=== PATIENT | female | born 1935 | race Caucasian/White ===

== ENCOUNTER 2023-07-05 20:24 | Inpatient (IN) | payer MEDICARE, MEDICAID ==
[~2023-07-05] VITALS: Ht 165.1 cm; Wt 57.8 kg
[2023-07-05] MEDS: morphine 4 MG/ML inj SYRINge IV ONE (22:26)
[2023-07-05] MEDS ORDERED: IPRA3AMP31 NEB (23:28)
[2023-07-05] MEDS ORDERED: LISI20TA28 PO (23:31)
[2023-07-05] MEDS ORDERED: TRAZ-256 PO (23:32)
[2023-07-05] MEDS ORDERED: BUDE10.2 INH (23:36)
[2023-07-05] MEDS ORDERED: FENT-90 TD (23:38)
[2023-07-05] MEDS ORDERED: FLUT1AER INH (23:40)
[2023-07-05] MEDS ORDERED: SYN0.088T PO (23:42)
[2023-07-05] MEDS ORDERED: magnesium Cl slow-release 64mg tablet PO PRN (23:45)
[2023-07-05] MEDS ORDERED: MIRA25TA PO (23:45)
[2023-07-05] MEDS ORDERED: acetaminophen 325mg tablet PO PRN (23:45)
[2023-07-05] MEDS ORDERED: magnesium 2GM in 50ml NS 50 ML IV PRN (23:45)
[2023-07-05] MEDS ORDERED: magnesium 4gm in 100ml NS 100 ML IV PRN (23:45)
[2023-07-05] MEDS ORDERED: potassium Cl 20 mEq SR tablet PO PRN ×2 (23:45)
[2023-07-05] MEDS ORDERED: HYDROcodone/acetaminophen 5mg/325mg tablet PO PRN (23:45)
[2023-07-05] MEDS: normal saline 1000ml 1,000 ML IV SCH (23:45)
[2023-07-05] MEDS ORDERED: morphine 2 MG/ML inj. syringe IV PRN (23:45)
[2023-07-05] MEDS ORDERED: OMEP40CA21 PO (23:46)
[2023-07-05] MEDS ORDERED: TIOT18CA3 INH (23:47)
[2023-07-06] MEDS: enoxaparin 40mg/0.4ml syringe SUBCUT SCH (00:55)
[2023-07-06 01:21] LABS: HEMOGLOBIN 10.7 g/dl (12.0-16.0); WHITE BLOOD COUNT 10.5 X10'3 (4.5-11.0)
[2023-07-06 01:23] LABS: BASOPHILS % (AUTO) 0.2 % (0-1); EOSINOPHILS % (AUTO) 0.1 % (0-6); HEMATOCRIT 31.9 % (35.0-45.0); LYMPHOCYTES # (AUTO) 1.5 X10'3 (1.1-4.8); LYMPHOCYTES % (AUTO) 14.1 % (21-51); MEAN CORPUSCULAR HEMOGLOBIN 31.2 PG (27.0-31.0); MEAN CORPUSCULAR HGB CONC 33.5 g/dL (33.0-36.5); MEAN CORPUSCULAR VOLUME 93.2 FL (78-98); MEAN PLATELET VOLUME 7.7 FL (7.4-10.4); MONOCYTES % (AUTO) 9.3 % (2-12); NEUTROPHILS % (AUTO) 76.3 % (42-75); PLATELET COUNT 336 X10'3 (140-440); RED BLOOD COUNT 3.42 X10'6 (4.20-5.60); RED CELL DISTRIBUTION WIDTH 16.1 % (11.5-14.5)
[2023-07-06 01:32] LABS: ALBUMIN 2.1 G/DL (3.4-5.0); ALBUMIN/GLOBULIN RATIO 0.5 (1.1-1.5); ALKALINE PHOSPHATASE 83 IU/L (46-116); ANION GAP 6 (8-16); ASPARTATE AMINO TRANSFERASE 15 U/L (10-37); BILIRUBIN,TOTAL 0.4 MG/DL (0.1-1.0); BLOOD UREA NITROGEN 10 MG/DL (7-18); BUN/CREATININE RATIO 23.8 (10.0-20.0); CALCIUM 7.5 MG/DL (8.5-10.1); CHLORIDE 100 MMOL/L (99-107); CREATININE 0.42 MG/DL (0.40-0.90); GLUCOSE 139 MG/DL (70-104); SODIUM 136 MMOL/L (135-145); TOTAL CARBON DIOXIDE 29.8 MMOL/L (24-32); TOTAL PROTEIN 6.1 G/DL (6.4-8.2); eCRCL 83 ML/MIN; eGFR > 90 ML/MIN
[2023-07-06] MEDS: morphine 2 MG/ML inj. syringe IV PRN (01:50)
[2023-07-06 01:51] LABS: ALANINE AMINOTRANSFERASE < 6 U/L (12-78)
[2023-07-06 01:52] LABS: POTASSIUM 2.4 MMOL/L (3.5-5.1)
[2023-07-06] MEDS: potassium Cl 40MEQ/1/2NS 520ml 520 ML IV PRN (02:25)
[2023-07-06] MEDS: ondansetron/PF 4mg/2ml inj IV PRN (02:26)
[2023-07-06 07:30] VITALS: BP 149/59; PULSE 89; RESP 16; TEMP 98.1; O2SAT 98
[2023-07-06 07:46] LABS: BASOPHILS % (AUTO) 0.2 % (0-1); EOSINOPHILS % (AUTO) 0.4 % (0-6); HEMATOCRIT 32.7 % (35.0-45.0); HEMOGLOBIN 10.9 g/dl (12.0-16.0); MEAN CORPUSCULAR HEMOGLOBIN 31.4 PG (27.0-31.0); MEAN CORPUSCULAR HGB CONC 33.2 g/dL (33.0-36.5); MEAN CORPUSCULAR VOLUME 94.4 FL (78-98); MEAN PLATELET VOLUME 7.9 FL (7.4-10.4); MONOCYTES # (AUTO) 0.9 X10'3 (0-0.9); MONOCYTES % (AUTO) 9.3 % (2-12); NEUTROPHILS # (AUTO) 6.6 X10'3 (1.8-7.7); NEUTROPHILS % (AUTO) 69.1 % (42-75); PLATELET COUNT 342 X10'3 (140-440); RED BLOOD COUNT 3.46 X10'6 (4.20-5.60); RED CELL DISTRIBUTION WIDTH 16.9 % (11.5-14.5); WHITE BLOOD COUNT 9.5 X10'3 (4.5-11.0)
[2023-07-06] MEDS: acetaminophen 325mg tablet PO PRN (08:14)
[2023-07-06 08:18] LABS: ALANINE AMINOTRANSFERASE 10 U/L (12-78); ALBUMIN 2.1 G/DL (3.4-5.0); ALBUMIN/GLOBULIN RATIO 0.6 (1.1-1.5); ALKALINE PHOSPHATASE 84 IU/L (46-116); ANION GAP 9 (8-16); ASPARTATE AMINO TRANSFERASE 11 U/L (10-37); BILIRUBIN,TOTAL 0.4 MG/DL (0.1-1.0); BLOOD UREA NITROGEN 10 MG/DL (7-18); BUN/CREATININE RATIO 18.5 (10.0-20.0); CALCIUM 7.6 MG/DL (8.5-10.1); CHLORIDE 102 MMOL/L (99-107); CREATININE 0.54 MG/DL (0.40-0.90); GLUCOSE 79 MG/DL (70-104); POTASSIUM 3.6 MMOL/L (3.5-5.1); SODIUM 139 MMOL/L (135-145); TOTAL CARBON DIOXIDE 27.8 MMOL/L (24-32); TOTAL PROTEIN 5.9 G/DL (6.4-8.2); eCRCL 65 ML/MIN; eGFR > 90 ML/MIN
[2023-07-06 10:00] VITALS: BP 149/64; PULSE 87; RESP 16; TEMP 97.6; O2SAT 98
[2023-07-06] MEDS: HYDROcodone/acetaminophen 10/325mg tab PO PRN (17:50)
[2023-07-06 19:00] VITALS: BP 159/68; PULSE 87; RESP 14; RESP 18; TEMP 97.3; O2SAT 99
[2023-07-06 22:00] VITALS: BP 147/66; PULSE 85; RESP 16; TEMP 97.7; O2SAT 98
[2023-07-07 06:11] LABS: BASOPHILS % (AUTO) 0.4 % (0-1); EOSINOPHILS # (AUTO) 0.1 X10'3 (0-0.9); EOSINOPHILS % (AUTO) 1.1 % (0-6); LYMPHOCYTES # (AUTO) 1.8 X10'3 (1.1-4.8); LYMPHOCYTES % (AUTO) 29.5 % (21-51); MEAN CORPUSCULAR HEMOGLOBIN 31.6 PG (27.0-31.0); MEAN CORPUSCULAR HGB CONC 33.4 g/dL (33.0-36.5); MEAN CORPUSCULAR VOLUME 94.7 FL (78-98); MEAN PLATELET VOLUME 8.1 FL (7.4-10.4); MONOCYTES # (AUTO) 0.6 X10'3 (0-0.9); MONOCYTES % (AUTO) 10.4 % (2-12); NEUTROPHILS # (AUTO) 3.7 X10'3 (1.8-7.7); NEUTROPHILS % (AUTO) 58.6 % (42-75); PLATELET COUNT 291 X10'3 (140-440); RED BLOOD COUNT 3.17 X10'6 (4.20-5.60); RED CELL DISTRIBUTION WIDTH 16.7 % (11.5-14.5); WHITE BLOOD COUNT 6.3 X10'3 (4.5-11.0)
[2023-07-07 06:23] LABS: ALBUMIN 1.7 G/DL (3.4-5.0); ALBUMIN/GLOBULIN RATIO 0.5 (1.1-1.5); ALKALINE PHOSPHATASE 72 IU/L (46-116); ANION GAP 9 (8-16); ASPARTATE AMINO TRANSFERASE 11 U/L (10-37); BILIRUBIN,TOTAL 0.4 MG/DL (0.1-1.0); BLOOD UREA NITROGEN 10 MG/DL (7-18); BUN/CREATININE RATIO 23.8 (10.0-20.0); CALCIUM 7.3 MG/DL (8.5-10.1); CHLORIDE 105 MMOL/L (99-107); CREATININE 0.42 MG/DL (0.40-0.90); GLUCOSE 54 MG/DL (70-104); POTASSIUM 3.3 MMOL/L (3.5-5.1); SODIUM 138 MMOL/L (135-145); TOTAL CARBON DIOXIDE 24.5 MMOL/L (24-32); TOTAL PROTEIN 5.2 G/DL (6.4-8.2); eCRCL 83 ML/MIN; eGFR > 90 ML/MIN
[2023-07-07 06:27] LABS: ALANINE AMINOTRANSFERASE < 6 U/L (12-78)
[2023-07-07 06:58] VITALS: BP 153/57; PULSE 78; RESP 16; TEMP 97.8; O2SAT 99
[2023-07-07 08:35] VITALS: RESP 16; O2SAT 97
[2023-07-07 10:41] VITALS: BP 148/57; PULSE 76; RESP 15; TEMP 98; O2SAT 97
[2023-07-07 18:00] VITALS: BP 145/49; PULSE 88; RESP 16; TEMP 97.6; O2SAT 96
[2023-07-07 20:00] VITALS: RESP 18; O2SAT 92
[2023-07-07 22:00] VITALS: BP 153/53; PULSE 81; RESP 16; TEMP 98; O2SAT 99
[2023-07-08] VITALS (9 sets, daily range): BP systolic 126–161; BP diastolic 61–70; PULSE 60–86; RESP 15–20; TEMP 97.3–98.1; O2SAT 92–96
[2023-07-08 07:55] LABS: BASOPHILS % (AUTO) 0.2 % (0-1); EOSINOPHILS # (AUTO) 0.1 X10'3 (0-0.9); EOSINOPHILS % (AUTO) 0.6 % (0-6); HEMATOCRIT 33.9 % (35.0-45.0); HEMOGLOBIN 10.8 g/dl (12.0-16.0); LYMPHOCYTES # (AUTO) 2.7 X10'3 (1.1-4.8); LYMPHOCYTES % (AUTO) 31.4 % (21-51); MEAN CORPUSCULAR HGB CONC 31.9 g/dL (33.0-36.5); MEAN CORPUSCULAR VOLUME 97.1 FL (78-98); MEAN PLATELET VOLUME 8.3 FL (7.4-10.4); MONOCYTES # (AUTO) 0.7 X10'3 (0-0.9); MONOCYTES % (AUTO) 8.4 % (2-12); NEUTROPHILS # (AUTO) 5.1 X10'3 (1.8-7.7); NEUTROPHILS % (AUTO) 59.4 % (42-75); PLATELET COUNT 396 X10'3 (140-440); RED BLOOD COUNT 3.49 X10'6 (4.20-5.60); WHITE BLOOD COUNT 8.6 X10'3 (4.5-11.0)
[2023-07-08 10:56] LABS: ALBUMIN 1.9 G/DL (3.4-5.0); ALBUMIN/GLOBULIN RATIO 0.5 (1.1-1.5); ALKALINE PHOSPHATASE 86 IU/L (46-116); ANION GAP 13 (8-16); ASPARTATE AMINO TRANSFERASE 14 U/L (10-37); BILIRUBIN,TOTAL 0.5 MG/DL (0.1-1.0); BLOOD UREA NITROGEN 8 MG/DL (7-18); CALCIUM 7.5 MG/DL (8.5-10.1); CHLORIDE 101 MMOL/L (99-107); POTASSIUM 3.9 MMOL/L (3.5-5.1); SODIUM 133 MMOL/L (135-145); TOTAL CARBON DIOXIDE 19.1 MMOL/L (24-32); eCRCL 70 ML/MIN; eGFR > 90 ML/MIN
[2023-07-08 11:00] LABS: ALANINE AMINOTRANSFERASE < 6 U/L (12-78)
[2023-07-08 11:02] LABS: GLUCOSE 30 MG/DL (70-104)
[2023-07-08] MEDS: dextrose 50%-water 50ml dispensing syringe IV ONE (11:13)
[2023-07-08] MEDS: potassium Cl 20mEq in D5-NS 1,000 ML IV SCH (11:25)
[2023-07-08] MEDS ORDERED: DEXTROSE 15 GM of carb/4 tabs (each vial/BOTTLE has 4 tablets) PO PRN (13:00)
[2023-07-08] MEDS ORDERED: fentaNYL 25MCG/hour patch.TD72 TD PRN (13:05)
[2023-07-08] MEDS: traZODone 50mg tablet PO SCH (19:46)
[2023-07-08] MEDS: budesonide 0.5mg/2ml UD nebule IH SCH (20:01)
[2023-07-09] VITALS (9 sets, daily range): BP systolic 113–144; BP diastolic 58–65; PULSE 79–91; RESP 16–24; TEMP 98.1–98.5; O2SAT 95–97
[2023-07-09] MEDS: ipratropium/albuterol 3ml nebule NEB SCH (03:24)
[2023-07-09 07:11] LABS: BASOPHILS % (AUTO) 0.2 % (0-1); EOSINOPHILS # (AUTO) 0.1 X10'3 (0-0.9); EOSINOPHILS % (AUTO) 0.6 % (0-6); HEMATOCRIT 31.1 % (35.0-45.0); HEMOGLOBIN 10.2 g/dl (12.0-16.0); LYMPHOCYTES # (AUTO) 2.2 X10'3 (1.1-4.8); LYMPHOCYTES % (AUTO) 26.9 % (21-51); MEAN CORPUSCULAR HEMOGLOBIN 31.4 PG (27.0-31.0); MEAN CORPUSCULAR HGB CONC 32.7 g/dL (33.0-36.5); MEAN CORPUSCULAR VOLUME 96.3 FL (78-98); MEAN PLATELET VOLUME 7.6 FL (7.4-10.4); MONOCYTES # (AUTO) 0.9 X10'3 (0-0.9); MONOCYTES % (AUTO) 11.2 % (2-12); NEUTROPHILS # (AUTO) 5.1 X10'3 (1.8-7.7); NEUTROPHILS % (AUTO) 61.1 % (42-75); PLATELET COUNT 299 X10'3 (140-440); RED BLOOD COUNT 3.23 X10'6 (4.20-5.60); RED CELL DISTRIBUTION WIDTH 17.2 % (11.5-14.5); WHITE BLOOD COUNT 8.3 X10'3 (4.5-11.0)
[2023-07-09 07:33] LABS: ALANINE AMINOTRANSFERASE 7 U/L (12-78); ALBUMIN 1.7 G/DL (3.4-5.0); ALBUMIN/GLOBULIN RATIO 0.4 (1.1-1.5); ALKALINE PHOSPHATASE 74 IU/L (46-116); ANION GAP 8 (8-16); ASPARTATE AMINO TRANSFERASE 13 U/L (10-37); BILIRUBIN,TOTAL 0.4 MG/DL (0.1-1.0); BLOOD UREA NITROGEN 6 MG/DL (7-18); CALCIUM 7.5 MG/DL (8.5-10.1); CHLORIDE 104 MMOL/L (99-107); CREATININE 0.46 MG/DL (0.40-0.90); GLUCOSE 92 MG/DL (70-104); POTASSIUM 3.5 MMOL/L (3.5-5.1); SODIUM 135 MMOL/L (135-145); TOTAL CARBON DIOXIDE 22.6 MMOL/L (24-32); TOTAL PROTEIN 5.8 G/DL (6.4-8.2); eCRCL 76 ML/MIN; eGFR > 90 ML/MIN
[2023-07-09] MEDS: lisinopril 10 MG tablet PO SCH (08:37)
[2023-07-09] MEDS: mirabegron 25mg ER tablet PO SCH (08:37)
[2023-07-09] MEDS: levoTHYROXINE 25mcg tablet PO SCH (08:37)
[2023-07-09] MEDS: pantoprazole 40mg Tablet.DR PO SCH (08:42)
[2023-07-10 06:00] VITALS: BP 143/51; PULSE 85; RESP 18; TEMP 98.1; O2SAT 92
[2023-07-10 07:29] LABS: BASOPHILS % (AUTO) 0.5 % (0-1); EOSINOPHILS # (AUTO) 0.1 X10'3 (0-0.9); EOSINOPHILS % (AUTO) 0.9 % (0-6); HEMATOCRIT 30.1 % (35.0-45.0); HEMOGLOBIN 9.9 g/dl (12.0-16.0); LYMPHOCYTES # (AUTO) 1.7 X10'3 (1.1-4.8); LYMPHOCYTES % (AUTO) 27.9 % (21-51); MEAN CORPUSCULAR HEMOGLOBIN 31.8 PG (27.0-31.0); MEAN CORPUSCULAR VOLUME 96.5 FL (78-98); MEAN PLATELET VOLUME 7.7 FL (7.4-10.4); MONOCYTES # (AUTO) 0.5 X10'3 (0-0.9); NEUTROPHILS # (AUTO) 3.7 X10'3 (1.8-7.7); NEUTROPHILS % (AUTO) 61.7 % (42-75); PLATELET COUNT 254 X10'3 (140-440); RED BLOOD COUNT 3.12 X10'6 (4.20-5.60); RED CELL DISTRIBUTION WIDTH 17.3 % (11.5-14.5)
[2023-07-10 08:02] LABS: ALBUMIN 1.6 G/DL (3.4-5.0); ALBUMIN/GLOBULIN RATIO 0.5 (1.1-1.5); ALKALINE PHOSPHATASE 66 IU/L (46-116); ANION GAP 9 (8-16); ASPARTATE AMINO TRANSFERASE 12 U/L (10-37); BILIRUBIN,TOTAL 0.3 MG/DL (0.1-1.0); BLOOD UREA NITROGEN 5 MG/DL (7-18); BUN/CREATININE RATIO 10.2 (10.0-20.0); CALCIUM 7.2 MG/DL (8.5-10.1); CHLORIDE 106 MMOL/L (99-107); CREATININE 0.49 MG/DL (0.40-0.90); GLUCOSE 101 MG/DL (70-104); POTASSIUM 3.4 MMOL/L (3.5-5.1); SODIUM 137 MMOL/L (135-145); eCRCL 71 ML/MIN; eGFR > 90 ML/MIN
[2023-07-10 08:14] LABS: ALANINE AMINOTRANSFERASE < 6 U/L (12-78)
[2023-07-10 08:30] VITALS: RESP 18; O2SAT 92
[2023-07-10 09:26] LABS: GIANT PLATELET FEW; LARGE PLATELETS FEW; PLATELET ESTIMATE NORMAL; SMUDGE CELLS 1+; TOTAL CELLS COUNTED 100
[2023-07-10 09:27] LABS: ANISOCYTOSIS 1+; BURR CELLS FEW; ELLIPTOCYTES 1+
[2023-07-10 09:58] VITALS: BP_SYST 90; PULSE 158
== END 2023-07-10 12:00 | DRG 390 ==
LOC: ER 20:25 → ED HOLD 23:47 → ORTHO 4S 07-06 07:15
PROVIDERS: ADMIT Internal Medicine; ATTEND Family Medicine
DX: K56.600 Partial intestinal obstruction, unspecified as to cause (principal); E87.6 Hypokalemia; L89.151 Pressure ulcer of sacral region, stage 1; D64.9 Anemia, unspecified; E16.2 Hypoglycemia, unspecified; E03.9 Hypothyroidism, unspecified; F41.9 Anxiety disorder, unspecified; F32.A Depression, unspecified; E78.00 Pure hypercholesterolemia, unspecified; I10 Essential (primary) hypertension; G89.4 Chronic pain syndrome; J43.9 Emphysema, unspecified; Z95.0 Presence of cardiac pacemaker; Z85.038 Personal history of other malignant neoplasm of large intestine; Z90.710 Acquired absence of both cervix and uterus; Z90.49 Acquired absence of other specified parts of digestive tract; Z79.899 Other long term (current) drug therapy
CPT/HCPCS: 36415; 70450; 71045; 80048; 80053; 80305; 80320; 81001; 82948; 83605; 83690; 83735; 83880; 84145; 84484; 85007; 85025; 87040; 87081; 87088; 93005; 94640; 94760; 96374; 97161; 97530; 99285; A5200; A6209; A6212; A6213; A6449; G0378; J1650; J2270; J2405; J3480; J3490; J7030

== ENCOUNTER 2023-07-10 14:44 | Emergency (ER) | payer MEDICARE, MEDICAID ==
[~2023-07-10] VITALS: Ht 165.1 cm; Wt 54.5 kg
[~2023-07-10 14:44] MED LIST: BUDE10.2 INH; FENT-90 TD; FLUT1AER INH; IPRA3AMP31 NEB; LISI20TA28 PO; MIRA25TA PO; OMEP40CA21 PO; SYN0.088T PO; TIOT18CA3 INH; TRAZ-256 PO
[2023-07-10 14:54] VITALS: TEMP 96.8
[2023-07-10 15:42] VITALS: BP 146/111
[2023-07-10] MEDS ORDERED: diltiazem 5mg/ml 5ml inj. IV ONE (15:50)
[2023-07-10] MEDS ORDERED: ondansetron/PF 4mg/2ml inj IM ONE (15:50)
[2023-07-10 17:21] LABS: BILIRUBIN,URINE NEGATIVE (Neg); CLARITY,URINE SLIGHTLY CLOUDY (Clear); COLOR,URINE YELLOW (Yellow); GLUCOSE, URINE NEGATIVE (Neg); KETONES,URINE NEGATIVE (Neg); LEUKOCYTE ESTERASE ,URINE SMALL (Neg); NITRITES, URINE POSITIVE (Neg); OCCULT BLOOD,URINE TRACE-INTACT (Neg); PROTEIN,URINE NEGATIVE (Neg); UROBILINOGEN,URINE 0.2 E.U/dL (0.2-1.0)
[2023-07-10 17:30] LABS: UA COLLECTION TYPE NON-SPECIFIED
[2023-07-10 17:38] LABS: URINE AMPHETAMINE SCREEN NEGATIVE (Neg); URINE BARBITUATE SCREEN NEGATIVE (Neg); URINE BENZODIAZEPINES SCREEN NEGATIVE (Neg); URINE CANNABINOID SCREEN NEGATIVE (Neg); URINE COCAINE SCREEN NEGATIVE (Neg); URINE METHADONE SCREEN NEGATIVE (Neg); URINE OPIATE SCREEN POSITIVE (Neg); URINE PHENCYCLIDINE SCREEN NEGATIVE (Neg)
[2023-07-10 17:39] LABS: RBC,URINE 0-2 /HPF (0-2); WBC,URINE 20-30 /HPF (0-4)
[2023-07-10 17:39] LABS: ANION GAP 11 (8-16); BLOOD UREA NITROGEN 6 MG/DL (7-18); BUN/CREATININE RATIO 7.1 (10.0-20.0); CALCIUM 7.7 MG/DL (8.5-10.1); CHLORIDE 102 MMOL/L (99-107); CREATININE 0.85 MG/DL (0.40-0.90); ETHANOL < 10 MG/DL (<10); GLUCOSE 142 MG/DL (70-104); LIPASE 14 U/L (16-77); MAGNESIUM 1.1 MG/DL (1.5-2.4); POTASSIUM 3.5 MMOL/L (3.5-5.1); PRO BRAIN NATRIURETIC PEPTIDE 7017 PG/ML (0-450); SODIUM 133 MMOL/L (135-145); eCRCL 39 ML/MIN; eGFR 63 ML/MIN
[2023-07-10 17:40] LABS: BACTERIA,URINE 1+ /HPF (Neg); SQUAMOUS EPITHELIAL CELL,UR FEW /LPF (FEW)
[2023-07-10 17:41] LABS: CELLULAR CAST 0-4 /LPF (NEGATIVE)
[2023-07-10 18:09] VITALS: PULSE 82; RESP 18; O2SAT 98
== END 2023-07-10 19:20 | disposition home or self-care (01) ==
LOC: ER 14:44
DX: T65.91XA Toxic effect of unspecified substance, accidental (unintentional), initial encounter (principal); N39.0 Urinary tract infection, site not specified; E78.00 Pure hypercholesterolemia, unspecified; I10 Essential (primary) hypertension; J44.9 Chronic obstructive pulmonary disease, unspecified; E03.9 Hypothyroidism, unspecified; Z79.899 Other long term (current) drug therapy; Y92.89 Other specified places as the place of occurrence of the external cause
CPT/HCPCS: 36415; 70450; 71045; 80048; 80305; 80320; 81001; 83690; 83735; 83880; 84145; 84484; 87077; 87088; 87186; 93005; 99285